=== PATIENT | female | born 1995 | race Caucasian/White ===

== ENCOUNTER 2024-09-15 00:08 | Emergency (ER) | payer OTHER ==
[2024-09-15 00:13] VITALS: BP 126/68; PULSE 55; RESP 18; TEMP 97.7; BMI 19.7
[2024-09-15] MEDS ORDERED: ACETAMINOPHEN 500 MG TABLET (FP) ONE (00:43)
[2024-09-15] MEDS: ACETAMINOPHEN 500 MG TABLET (FP) PO ONE (00:46)
[2024-09-15 00:58] LABS: HCG,QUALITATIVE URINE Positive
[2024-09-15 01:02] LABS: EPI CELLS >36 /uL (0-25.1); HYALINE CASTS 3 /uL (0-3.1); PH,URINE 5.5 (5.0-8.0); URINE APPEARANCE CLOUDY; URINE BILIRUBIN 1+ (NEGATIVE); URINE COLOR DK YELLOW; URINE GLUCOSE (UA) NEGATIVE (NEGATIVE); URINE KETONE 1+ (NEGATIVE); URINE LEUK ESTERASE NEGATIVE (NEGATIVE); URINE NITRITE NEGATIVE (NEGATIVE); URINE PROTEIN 1+ (NEGATIVE); URINE RBC 35 /uL (0-23.9); URINE WBC 40 /uL (0-25.8)
[2024-09-15 02:05] LABS: ABSOLUTE IMMATURE GRANULOCYTES 0.02 x10^3/uL (0.0-0.031); BASOPHILS # 0.03 x10^3/uL (0.01-0.08); EOSINOPHIL % 2.8 % (0.7-5.8); EOSINOPHILS # 0.21 x10^3/uL (0.04-0.36); HEMOGLOBIN 11.9 g/dL (11.2-15.7); MCHC 33.1 g/dl (32.2-35.5); MEAN CELL VOLUME 93.5 fl (79.4-94.8); MEAN PLT VOLUME 9.6 fl (9.4-12.3); MONOCYTE # 0.59 x10^3/uL (0.24-0.86); PLATELET COUNT 324 x10^3/uL (182-369); RDW 12.3 % (12.1-16.5)
[2024-09-15 03:37] LABS: HCV DIAGNOSTIC IN-HOUSE W/RFLX NON-REACTIVE (NONREACTIVE); HIV INTERPRETATION NEGATIVE (NEGATIVE)
[2024-09-15 06:01] LABS: URINE BACTERIA 102.9 /uL (0-1359)
== END 2024-09-15 03:35 | disposition home or self-care (01) ==
LOC: JER 00:08
DX: O26.891 Other specified pregnancy related conditions, first trimester (principal); R10.32 Left lower quadrant pain; O23.591 Infection of other part of genital tract in pregnancy, first trimester; B37.31 Acute candidiasis of vulva and vagina; Z3A.01 Less than 8 weeks gestation of pregnancy
CPT/HCPCS: 36415; 76817-TC; 81003; 84702; 84703; 85025; 86803; 86850; 86900; 86901; 87086; 87389; 99284-25

== ENCOUNTER 2024-09-20 21:04 | Emergency (ER) | payer OTHER ==
[2024-09-20 21:11] VITALS: BP 101/63; PULSE 88; RESP 18; TEMP 98; BMI 19.7
== END 2024-09-21 00:04 | disposition home or self-care (01) ==
LOC: JERFT 21:04 → JER 21:04
DX: O02.81 Inappropriate change in quantitative human chorionic gonadotropin (hCG) in early pregnancy (principal); Z3A.01 Less than 8 weeks gestation of pregnancy
CPT/HCPCS: 36415; 76817-TC; 84702; 99284-25